=== PATIENT | female | born 1950 | race Caucasian/White ===

== ENCOUNTER 2017-04-01 17:29 | Emergency (ER) | payer OTHER, MEDICARE, MEDICAID ==
[~2017-04-01] VITALS: Ht 152.4 cm; Wt 71.8 kg
[~2017-04-01 17:29] MED LIST: ADLT ASA LOW81 MG PO; ADULT ASA81 MG OR; ADVAIR DISK2 IN; ALBUTEROL SUL0.083 % IN; ALENDRONATE70 MG PO; AMITRIPTYLIN25 MG PO; ASA LO-DOSE81 MG OR; ATIVAN0.5 MG PO; AVELOX400 MG OR; BL ADULT ASA81 MG OR; BONIVA150 MG PO; COMBIVENT IN; COZAAR100 MG OR; COZAAR100 MG PO; COZAAR50 MG OR; ELAVIL25 MG OR; ELAVIL25 MG PO; ESCITALOPRAM OX10 MG PO; FLONASE NASAL50 MCG; GABAPENTIN300 MG PO; GLYBURIDE5 MG PO; HYDROCHLOROT12.5 MG OR; ISOSORB DIN30 MG OR; ISOSORB MONO30 MG PO; LANTUS SC; LANTUS100 MG/ML SC; LASIX40 MG PO; LEVEMIR FLEXPEN SC; LEVEMIR1000 UNITS SC; LIPITOR40 MG OR; LISINOPRIL20 MG OR; LOSARTAN POTASS50 MG PO; MAXZIDE-2537.5 MG/TA PO; METFORMIN850 MG OR; METOPROL TAR25 MG PO; MICRO-K10 MEQ PO; NASONEX50 MCG/AC; NITROGLYCER0.4 MG SL; NOVOLO1 SC; NOVOLOG FLEXPEN SC; PANCOF EXP OR; PERCOCET 5/325M1 TAB OR; PLAVIX75 MG PO; PROZAC10 M1 OR; PROZAC20 M1 OR; RESTORIL30 MG PO; SIMVASTATIN40 MG OR; SIMVASTATIN40 MG PO; SIMVASTATIN80 MG PO; SINGULAIR 10 MG10 MG OR; TRAMADOL HCL50 MG PO; TRANSDERM-NITR0.4 MG TD; TRAZODONE50 MG PO; VICODIN1 TAB PO; VITAMIN D31000 UNI1 PO; [UNRECOGNIZED DRUG - OTHER] OR
[2017-04-01] MEDS ORDERED: TORADOL PO (19:53)
[2017-04-01 20:00] VITALS: BP 150/84
== END 2017-04-01 20:00 | disposition home or self-care (01) | DRG 552 ==
LOC: ED 17:29
DX: S16.1XXA Strain of muscle, fascia and tendon at neck level, initial encounter (principal); J44.9 Chronic obstructive pulmonary disease, unspecified; I10 Essential (primary) hypertension; S43.402A Unspecified sprain of left shoulder joint, initial encounter; S63.92XA Sprain of unspecified part of left wrist and hand, initial encounter; M19.042 Primary osteoarthritis, left hand; E11.9 Type 2 diabetes mellitus without complications; I25.2 Old myocardial infarction; E78.00 Pure hypercholesterolemia, unspecified; F17.210 Nicotine dependence, cigarettes, uncomplicated; G89.29 Other chronic pain; M54.9 Dorsalgia, unspecified; V59.40XA Driver of pick-up truck or van injured in collision with unspecified motor vehicles in traffic accident, initial encounter; Z86.73 Personal history of transient ischemic attack (TIA), and cerebral infarction without residual deficits

== ENCOUNTER 2017-06-03 13:13 | Emergency (ER) | payer MEDICARE, MEDICAID ==
[~2017-06-03] VITALS: Ht 152.4 cm; Wt 71.8 kg
[~2017-06-03 13:13] MED LIST changes: +TORADOL PO
[2017-06-03 14:04] LABS: HEMATOCRIT 42.3 % (37.0-47.0); IMMATURE GRANULOCYTES 0.3 % (0.0-1.0); MEAN CELL VOLUME 89.4 fL CALC (80.0-100.0); MEAN CORPUSCULAR HGB 29.6 pG CALC (26.0-32.0); MEAN CORPUSCULAR HGB CONC 33.1 g/L CALC (32.0-36.0); NEUT# 6.46 thou/uL (2.00-7.15); RED BLOOD COUNT 4.73 mill/uL (4.20-5.60); RED CELL DISTRI WIDTH 13.4 % (11.5-15.5)
[2017-06-03 14:21] LABS: ALBUMIN 4.2 g/dL (3.2-5.0); ALKALINE PHOSPHATASE 86 u/l (38-126); ANION GAP 13 (6-22 (CALC)); BILIRUBIN, TOTAL 0.5 mg/dL (0.0-1.4); BUN 16 mg/dL (8-23); BUN/CREATININE RATIO 22 (12-20 (CALC)); CALCIUM 9.4 mg/dL (8.4-10.2); CARBON DIOXIDE 23 mmol/l (22-30); CHLORIDE 109 mmol/l (95-108); CREATININE 0.7 mg/dL (0.5-1.0); GFR > 60 ML/MIN (>=60 (CALC)); GFR FOR AFR.AMER. > 60 ML/MIN (>=60 (CALC)); GLUCOSE 125 mg/dL (82-115); POTASSIUM 4.4 mmol/l (3.5-5.1); SGOT/AST 26 u/l (9-36); SGPT/ALT 46 u/l (11-66); SODIUM 141 mmol/l (137-146); TOTAL PROTEIN 7.5 g/dL (6.3-8.2)
[2017-06-03 14:35] LABS: URINE BILIRUBIN - DIPSTICK NEGATIVE (NEGATIVE); URINE BLOOD DIPSTICK NEGATIVE (NEGATIVE); URINE CLARITY CLEAR; URINE COLOR YELLOW; URINE GLUCOSE - DIPSTICK NEGATIVE (NEGATIVE); URINE KETONE NEGATIVE (NEGATIVE); URINE LEUK ESTERASE NEGATIVE (NEGATIVE); URINE NITRITE - DIPSTICK NEGATIVE (Negative); URINE PH 5.5 (4.5-8.0); URINE PROTEIN - DIPSTICK NEGATIVE (NEG-TRACE); URINE SPECIFIC GRAVITY >=1.030; URINE UROBILINOGEN - DIPSTICK 0.2 E.U./dL (0.2)
[2017-06-03 16:14] VITALS: BP 122/68
== END 2017-06-03 16:18 | disposition home or self-care (01) ==
LOC: ED 13:13
PROVIDERS: Emergency Medicine
DX: I95.9 Hypotension, unspecified (principal); R53.81 Other malaise; I25.2 Old myocardial infarction; I10 Essential (primary) hypertension; F17.210 Nicotine dependence, cigarettes, uncomplicated; R41.0 Disorientation, unspecified; E11.9 Type 2 diabetes mellitus without complications; Z79.4 Long term (current) use of insulin; Z79.82 Long term (current) use of aspirin; Z86.73 Personal history of transient ischemic attack (TIA), and cerebral infarction without residual deficits; Z95.5 Presence of coronary angioplasty implant and graft; R05 Cough; R42 Dizziness and giddiness